=== PATIENT | male | born 1995 | race African-American/Black ===

== ENCOUNTER 2016-11-30 15:45 | Emergency (ER) | payer SELFPAY ==
[~2016-11-30] VITALS: Ht 182.9 cm; Wt 59.0 kg
[2016-11-30 16:14] VITALS: BP 140/73
== END 2016-11-30 17:12 | disposition home or self-care (01) ==
LOC: ED 15:45
DX: S62.91XA Unspecified fracture of right hand, initial encounter for closed fracture (principal); X58.XXXA Exposure to other specified factors, initial encounter; Y93.89 Activity, other specified; Y92.89 Other specified places as the place of occurrence of the external cause; Y99.8 Other external cause status

== ENCOUNTER 2019-05-15 16:55 | Emergency (ER) | payer OTHER ==
[~2019-05-15] VITALS: Ht 180.3 cm; Wt 59.4 kg
[2019-05-15 17:09] VITALS: Ht 180.3 cm; Wt 59.4 kg
[2019-05-15 17:29] VITALS: BP 121/63
== END 2019-05-15 17:29 | disposition home or self-care (01) ==
LOC: ED 16:55
DX: R10.9 Unspecified abdominal pain (principal); R11.0 Nausea